=== PATIENT | male | born 1965 | race Caucasian/White ===

== ENCOUNTER 2016-10-12 12:12 | Emergency (ER) | payer OTHER ==
[~2016-10-12] VITALS: Ht 180.3 cm; Wt 93.0 kg
--- NOTE | 2016-10-12 12:25 | ED MVC/FALL/TRAUMA COMPLAINT ---
History of Present Illness General Chief Complaint: Facial or Head Injury Stated Complaint: FELL ON ICE, HIT BACK OF HEAD, -LOC Source: patient Exam Limitations: no limitations Vital Signs & Intake/Output Vital Signs & Intake/Output Vital Signs Date Time Temp Pulse Resp B/P Pulse O2 O2 Flow FiO2 Ox Delivery Rate 10/12 1409 97.8 92 16 143/80 98 Room Air 10/12 1222 96.6 102 20 149/85 97 Room Air Room Air Allergies Coded Allergies: No Known Allergies (10/12/16) Triage Note: PT TO ED S/P SLIP AND FALL ON ICE, HIT BACK OF HEAD DENIES LOC. NO SWELLING OR LACERATION NOTED. Triage Nurses Notes Reviewed? yes HPI: Patient is a 51-year-old male presents for evaluation of head injury status post fall. Patient slipped on ice and struck the back of his head against the ground. Injury occurred approximately one hour ago. Pain is 2-3 out of 10, worsens with palpation to the area. Patient reports feeling mildly lightheaded since the fall. Denies loss of consciousness, numbness, weakness, blurred vision, vomiting. (FELICITAS MARQUEZ) Past History Travel History Traveled to [place] past 21 day No Medical History Any Pertinent Medical History? see below for history Neurological: NONE EENT: NONE Cardiovascular: hyperlipidemia Respiratory: NONE Gastrointestinal: GERD Hepatic: NONE Renal: NONE Musculoskeletal: NONE Psychiatric: NONE Endocrine: NONE Blood Disorders: NONE Cancer(s): NONE ANIMAL BEHAVIOURIST/Reproductive: NONE Surgical History Surgical History: non-contributory Psychosocial History What is your primary language Vietnamese Tobacco Use: Current Not Daily ETOH Use: occasional use Illicit Drug Use: denies illicit drug use Family History Hx Contributory? No (FELICITAS MARQUEZ) Review of Systems Review of Systems Constitutional: Denies: chills, fever. Eyes: Denies: blindness, blurred vision. Ears, Nose, Throat, Mouth: Reports: no symptoms. Respiratory: Denies: cough, short of breath. Cardiovascular: Denies: chest pain, syncope. Gastrointestinal/Abdominal: Denies: abdominal pain, nausea, vomiting. Genitourinary: Reports: no symptoms. Musculoskeletal: Reports: joint pain (mild left hip). Denies: back pain, neck pain. Skin: Reports: no symptoms. Neurological/Psychological: Reports: see HPI. (FELICITAS MARQUEZ) Physical Exam Physical Exam General Appearance: well developed/nourished, alert, awake Head: 3 CM HEMATOMA TO THE SUPERIOR POSTERIOR SCALP. mILD TENDERNESS. nO PALPABLE STEP-OFFS OR DEFORMITIES. Eyes: Bilateral: normal appearance, PERRL, EOMI. 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 No Severe Sepsis Present: No Septic Shock Present: No (FELICITAS MARQUEZ) Progress Differential Diagnosis: aoritic dissection, abd injury, C/T/L spine injury, ext injury, ICH, pelvis injury, pnemothorax, spinal cord injury Plan of Care: Orders Procedure Date/time Status CT HEAD WO IV CONTRAST 10/12 1229 Active 1400: Results of CT scan discussed with patient. No acute neurologic abnormalities. Patient appears stable for discharge. (FELICITAS MARQUEZ) Diagnostic Imaging: Viewed by Me: CT Scan. Discussed w/RAD: CT Scan. Radiology Impression: PATIENT: BRADLEY FERNANDEZ PRESENT AGE: 51 PATIENT ACCOUNT NO: [id number] : 63 LOCATION: [facility] ORDERING PHYSICIAN: FELICITAS CABRERA SERVICE DATE: 10/12/16 EXAM TYPE: CAT - CT HEAD WO IV CONTRAST EXAMINATION: CT HEAD WITHOUT CONTRAST CLINICAL INFORMATION: 51-year-old male, history of fall, presented with hematoma to the superior, posterior scalp. COMPARISON: None. TECHNIQUE: Contiguous axial imaging was performed from the skull base to vertex without intravenous administration of contrast. DLP: 600.71 mGy-cm. FINDINGS: There is no evidence of acute intracranial hemorrhage or territorial infarction. No abnormal mass effect or midline shift is seen. Oro to white matter differentiation is well preserved. No extra-axial fluid collections are identified. The ventricles are normal in size. There is no abnormal attenuation within the brain parenchyma. The osseous structures and soft tissues are normal. The mastoid air cells and visualized portions of the paranasal sinuses are well aerated. IMPRESSION: No acute intracranial pathology. DICTATED BY: RENETTA TANNER MD DATE/TIME DICTATED:10/12 TRANSPORTATION SERVICES REPRESENTATIVE:SARAN DATE/TIME TRANSCRIBED:10/12/161342 CONFIDENTIAL, DO NOT COPY WITHOUT APPROPRIATE AUTHORIZATION. <Electronically signed in Other Vendor System> SIGNED BY: RENETTA TANNER MD 10/12/16 1351 (FELICITAS MARQUEZ) Departure Departure Disposition: HOME OR SELF CARE Condition: Stable Clinical Impression Primary Impression: Head contusion Qualifiers: Encounter type: initial encounter Contusion of head detail: scalp Qualified Code: S00.03XA - Contusion of scalp, initial encounter Secondary Impressions: Concussion Qualifiers: Encounter type: initial encounter Loss of consciousness presence/ duration: without LOC Qualified Code: S06.0X0A - Concussion without loss of consciousness, initial encounter Referrals: DANDRE CHAN MD (PCP/Family) Additional Instructions: Follow-up with your primary doctor this upcoming week if you continue with any symptoms on Friday. Return to the emergency department immediately if numbness, weakness, pain uncontrollable, confusion, lethargy, or worsening of symptoms. Departure Forms: Customer Survey General Discharge Information (FELICITAS MARQUEZ) PA/ARMATURE INSPECTOR Co-Sign Statement Statement: ED Attending supervision documentation- [] I saw and evaluated the patient. I have also reviewed all the pertinent lab results and diagnostic results. I agree with the findings and the plan of care as documented in the PA's/ARMATURE INSPECTOR's documentation. [X] I have reviewed the ED Record and agree with the PA's/ARMATURE INSPECTOR's documentation. [] Additions or exceptions (if any) to the PAs/ARMATURE INSPECTOR's note and plan are summarized below: [] (KAYCEE SWAN,SASHA)
--- NOTE | 2016-10-12 13:51 | CT SCAN REPORT ---
EXAMINATION: CT HEAD WITHOUT CONTRAST CLINICAL INFORMATION: 51-year-old male, history of fall, presented with hematoma to the superior, posterior scalp. COMPARISON: None. TECHNIQUE: Contiguous axial imaging was performed from the skull base to vertex without intravenous administration of contrast. DLP: 600.71 mGy-cm. FINDINGS: There is no evidence of acute intracranial hemorrhage or territorial infarction. No abnormal mass effect or midline shift is seen. Oro to white matter differentiation is well preserved. No extra-axial fluid collections are identified. The ventricles are normal in size. There is no abnormal attenuation within the brain parenchyma. The osseous structures and soft tissues are normal. The mastoid air cells and visualized portions of the paranasal sinuses are well aerated. IMPRESSION: No acute intracranial pathology.
[2016-10-12 14:09] VITALS: BP 143/80
== END 2016-10-12 14:09 ==
LOC: ERH 12:12
DX: S00.93XA Contusion of unspecified part of head, initial encounter (principal); S06.0X9A Concussion with loss of consciousness of unspecified duration, initial encounter; W00.0XXA Fall on same level due to ice and snow, initial encounter